=== PATIENT | female | born 1940 ===

== ENCOUNTER → 2019-02-16 | Outpatient (CLI) | payer OTHER ==
[~2019-02-16] MED LIST: NABUMETONE500 MG PO; PERCOCET 5/3251 TAB PO; WELLBUTRIN75 MG; XANAX1 MG
== END | disposition home or self-care (01) ==
LOC: RAD 13:29
DX: J31.0 Chronic rhinitis (principal); J41.0 Simple chronic bronchitis; J06.9 Acute upper respiratory infection, unspecified; J41.1 Mucopurulent chronic bronchitis; J45.21 Mild intermittent asthma with (acute) exacerbation

== ENCOUNTER 2021-04-25 15:20 | Outpatient (CLI) | payer OTHER | END 2021-04-25 15:29 | disposition home or self-care (01) | LOC: RAD 15:20 | PROVIDERS: ATTEND Urology | DX: N20.0 Calculus of kidney (principal) ==

== ENCOUNTER 2022-04-23 10:14 | Outpatient (CLI) | payer OTHER | END 2022-04-23 10:19 | disposition home or self-care (01) | LOC: RAD 10:14 | PROVIDERS: ATTEND Orthopaedic Surgery | DX: M25.561 Pain in right knee (principal); M25.562 Pain in left knee ==

== ENCOUNTER 2022-04-28 11:18 | Outpatient (CLI) | payer OTHER | END 2022-04-28 11:32 | disposition home or self-care (01) | LOC: MRI 11:18 | PROVIDERS: ATTEND Orthopaedic Surgery | DX: S83.201A Bucket-handle tear of unspecified meniscus, current injury, left knee, initial encounter (principal) | CPT/HCPCS: 73721 ==

== ENCOUNTER → 2022-04-30 | Outpatient (CLI) | payer OTHER | END | disposition home or self-care (01) | LOC: NUCLEAR 04-29 11:00 | PROVIDERS: ATTEND Orthopaedic Surgery | DX: I82.403 Acute embolism and thrombosis of unspecified deep veins of lower extremity, bilateral (principal); M25.561 Pain in right knee; M25.562 Pain in left knee ==